=== PATIENT | female | born 1955 | race Caucasian/White ===

== ENCOUNTER 2020-03-30 17:12 | Outpatient (CLI) | payer BC | END 2020-03-30 23:59 | disposition critical access hospital (66) | LOC: EMS 17:12 | PROVIDERS: ATTEND Surgery | DX: S99.912A Unspecified injury of left ankle, initial encounter (principal); W19.XXXA Unspecified fall, initial encounter; Y92.89 Other specified places as the place of occurrence of the external cause | CPT/HCPCS: A0425; A0429 ==

== ENCOUNTER 2020-03-30 17:33 | Emergency (ER) | payer BC ==
[2020-03-30] MEDS ORDERED: HYDROmorphone 1 MG/ML CARPUJECT IM STA (17:38)
[2020-03-30 17:39] VITALS: BP 151/79
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
--- NOTE | 2020-03-30 18:11 | XRAY Report ---
PROCEDURE: Ankle 3 View LT INDICATIONS: ankle inj TECHNIQUE: 3 views of the ankle were acquired. COMPARISON: None FINDINGS: Bones: Markedly comminuted, displaced distal tibial shaft fracture. Mildly displaced lateral malleola r fracture. Ankle mortise grossly intact. No suspicious bony lesions. Soft tissues: No tibiotalar joint effusion. Achilles tendon appears normal. IMPRESSION: 1. Markedly comminuted, displaced distal tibial shaft fracture. 2. Mildly displaced lateral malleolar fracture. 3. Grossly intact ankle mortise. Reviewed by: Bernardino Carr MD on 03/30/2020 6:10 PM PDT Approved by: Bernardino Carr MD on 03/30/2020 6:10 PM PDT Station ID: [id number]
--- NOTE | 2020-03-30 18:13 | XRAY Report ---
PROCEDURE: Tib/Fib LT INDICATIONS: ankle inj TECHNIQUE: 2 views of the tibia and fibula were acquired. COMPARISON: Correlation is made with the accompanying ankle plain films. FINDINGS: Bones: There is a comminuted fracture seen of the distal tibia. On these plain films, no definite int ra-articular involvement is seen. There is also a laterally displaced spiral type fracture of the pro ximal fibula. There is widening of the syndesmosis. There is a likely distal fibular fracture. Soft tissues: Soft tissue swelling is seen. IMPRESSION: Comminuted fracture of the distal tibia. Mildly displaced fracture of the proximal fibula. There is a potential additional fracture of the distal fibula. There is widening of the syndesmosis. Reviewed by: Felipe Quiles MD on 03/30/2020 5:12 PM [facility] Approved by: Felipe Quiles MD on 03/30/2020 5:12 PM [facility] Station ID: [id number]
[2020-03-30] MEDS ORDERED: oxyCODONE/ACET 5/325 Prepack 4 PO STA (18:19)
== END 2020-03-30 19:13 | disposition home or self-care (01) ==
LOC: ED 17:33
DX: S82.862A Displaced Maisonneuve's fracture of left leg, initial encounter for closed fracture (principal); X50.1XXA Overexertion from prolonged static or awkward postures, initial encounter; Y93.89 Activity, other specified; Y92.814 Boat as the place of occurrence of the external cause
CPT/HCPCS: 73590; 73610; 96372; 99284; J1170